=== PATIENT | male | born 1950 | race Caucasian/White ===

== ENCOUNTER 2024-02-02 14:38 | Emergency (ER) | payer MEDICARE, BC, SELFPAY ==
[2024-02-02] VITALS (30 sets, daily range): BP systolic 118–139; BP diastolic 71–101; PULSE 59–80; RESP 16–18; TEMP 36.6; O2SAT 92–97; BMI 30.4
--- NOTE | 2024-02-02 15:45 | ED.CHESTPAIN ---
HPI - Chest Pain General Time Seen by Provider: 15:45 Date Seen: 02/02/24 Chief Complaint: Chest Pain Stated Complaint: chest pain Time Seen by Provider: 02/02/24 15:01 Source: patient and RN notes reviewed Mode of arrival: ambulatory Limitations: no limitations History of Present Illness HPI narrative: This 73-year-old male is coming in with episodic chest pain. He feels like it is more superficial, has noted it with activity or movement, more with bending over rotating. It has had a sharp character. He has noted it pretty much all day today. He has been more physically active working on a car he just got. He has a history of Boyd's esophagus, does take omeprazole, does not think this is heartburn. He has taken aspirin and has helped with his symptoms as far as he knows. He is not felt any shortness of breath, no palpitations, no racing heart rate. Has not been sick with any respiratory illness, no fevers or chills. He does not notice this necessarily with walking. Seems to be more position changes that he feels it but today there has been an underlying sense of it being there are all day. He has noticed it in his low center chest, possibly more superficially. He has a brother whom has had stent placement. Related Data Home Medications ?Medication ?Instructions ?Recorded ?Confirmed allopurinol 100 mg tablet 300 mg PO DAILY 02/02/24 02/02/24 atorvastatin 10 mg tablet 10 mg PO DAILY 02/02/24 02/02/24 chlorthalidone 25 mg tablet 12.5 mg PO QAM 02/02/24 02/02/24 lamotrigine 100 mg tablet 100 mg PO BID 02/02/24 02/02/24 lisinopril 30 mg tablet 30 mg PO DAILY 02/02/24 02/02/24 melatonin 02/02/24 Allergies Allergy/AdvReac Type Severity Reaction Status Date / Time No Known Drug Allergies Allergy Verified 02/02/24 14:48 Review of Systems Status of ROS Reports: 6 or more systems reviewed and unremarkable except as noted in History and below [facility] Social History Smoking Status: Never smoker Do you use any of these nicotine containing products: None How often do you have a drink containing alcohol: 2-3 times a week AUDIT-C Alcohol total score: 3 Non-prescribed substance use: denies use Exam Const Vital Signs, click to edit/add: Vital Signs - 24 hr 02/02/24 14:45 02/02/24 15:01 02/02/24 15:15 Temperature 97.9 F Pulse Rate 77 80 Pulse Rate [Pulse Oximeter] 80 Respiratory Rate 18 Blood Pressure Blood Pressure [Right Upper Arm] 139/81 Pulse Oximetry 94 95 94 Oxygen Delivery Method Room Air 02/02/24 15:26 02/02/24 15:27 02/02/24 15:30 Temperature Pulse Rate 76 79 Pulse Rate [Pulse Oximeter] 75 Respiratory Rate 18 16 Blood Pressure 121/71 Blood Pressure [Right Upper Arm] 121/71 Pulse Oximetry 93 96 92 Oxygen Delivery Method Room Air 02/02/24 15:32 02/02/24 15:45 02/02/24 16:00 Temperature Pulse Rate 78 79 74 Pulse Rate [Pulse Oximeter] Respiratory Rate Blood Pressure 131/76 Blood Pressure [Right Upper Arm] Pulse Oximetry 93 93 92 Oxygen Delivery Method 02/02/24 16:01 02/02/24 16:15 02/02/24 16:30 Temperature Pulse Rate 76 73 72 Pulse Rate [Pulse Oximeter] Respiratory Rate Blood Pressure 127/72 Blood Pressure [Right Upper Arm] Pulse Oximetry 93 94 94 Oxygen Delivery Method 02/02/24 16:32 02/02/24 16:45 02/02/24 17:00 Temperature Pulse Rate 74 69 63 Pulse Rate [Pulse Oximeter] Respiratory Rate Blood Pressure 134/83 Blood Pressure [Right Upper Arm] Pulse Oximetry 94 94 92 Oxygen Delivery Method 02/02/24 17:01 02/02/24 17:15 02/02/24 17:30 Temperature Pulse Rate 66 66 68 Pulse Rate [Pulse Oximeter] Respiratory Rate Blood Pressure 118/101 H Blood Pressure [Right Upper Arm] Pulse Oximetry 95 96 96 Oxygen Delivery Method 02/02/24 17:32 02/02/24 17:45 02/02/24 18:00 Temperature Pulse Rate 66 63 62 Pulse Rate [Pulse Oximeter] Respiratory Rate Blood Pressure 139/82 Blood Pressure [Right Upper Arm] Pulse Oximetry 96 95 96 Oxygen Delivery Method 02/02/24 18:02 02/02/24 18:15 02/02/24 18:30 Temperature Pulse Rate 60 62 61 Pulse Rate [Pulse Oximeter] Respiratory Rate Blood Pressure 139/81 Blood Pressure [Right Upper Arm] Pulse Oximetry 96 96 97 Oxygen Delivery Method 02/02/24 18:32 02/02/24 18:45 02/02/24 19:00 Temperature Pulse Rate 61 61 65 Pulse Rate [Pulse Oximeter] Respiratory Rate Blood Pressure 133/85 Blood Pressure [Right Upper Arm] Pulse Oximetry 95 95 95 Oxygen Delivery Method 02/02/24 19:01 Temperature Pulse Rate 59 L Pulse Rate [Pulse Oximeter] Respiratory Rate Blood Pressure 133/80 Blood Pressure [Right Upper Arm] Pulse Oximetry 95 Oxygen Delivery Method Patient is alert, interactive, no apparent distress. Pupils equal round reactive to light, sclera clear. Face atraumatic, normal facial function. Able speak in complete sentences. Neck is supple, no adenopathy, no thyromegaly masses or nodules. Lungs are clear, good air entry, no wheezing crackles. CV regular rate and rhythm, no murmur, normal S1-S2, no S3-S4. Abdomen is soft, no rebound or guarding, no organomegaly. He has no lower extremity edema. There is no reproducible chest wall tenderness. Documenting provider has reviewed patient's vital signs: yes Course Course ED Course: Patient's initial EKG appears normal and he had an initial point of care troponin which is normal as well. We will do a follow-up troponin, other labs including D-dimer. He will get a portable chest x-ray. Reevaluation(s) Time of Reevaluation #1: 17:43 Reevaluation #1: Reviewed initial normal labs, chest x-ray with patient. He notes when he rolls over to the side that he can feel some central chest pain, can reproduce it. He does wonder if it could be musculoskeletal. Reviewed with him that it certainly could be but I cannot rule out other etiologies, more life-threatening etiologies without doing the workup. He will be having a follow-up troponin, we are still awaiting his D-dimer. He understands that if his D-dimer is elevated he will be getting a chest CT PE protocol to rule out pulmonary emboli. Vital Signs Vital signs: Initial Vital Signs Temperature 97.9 F 02/02/24 14:45 Temperature Source Temporal Artery Scan 02/02/24 14:45 Pulse Rate 80 02/02/24 14:45 Respiratory Rate 18 02/02/24 14:45 Blood Pressure 139/81 02/02/24 14:45 Blood Pressure Mean 100 02/02/24 14:45 Blood Pressure Position Supine 02/02/24 14:45 Pulse Oximetry 94 02/02/24 14:45 Oxygen Delivery Method Room Air 02/02/24 14:45 Vital Signs Temperature 97.9 F 02/02/24 14:45 Pulse Rate 80 02/02/24 14:45 Respiratory Rate 18 02/02/24 14:45 Blood Pressure 139/81 02/02/24 14:45 Pulse Oximetry 94 02/02/24 14:45 Oxygen Delivery Method Room Air 02/02/24 14:45 Temperature 97.9 F 02/02/24 14:45 Pulse Rate 59 L 02/02/24 19:01 Respiratory Rate 16 02/02/24 15:27 Blood Pressure 133/80 02/02/24 19:01 Pulse Oximetry 95 02/02/24 19:01 Oxygen Delivery Method Room Air 02/02/24 15:26 MDM - Chest Pain Lab Data Attestation: I reviewed the patient's lab results. Labs: Lab Results 02/02/24 02/02/24 Range/Units 15:10 18:10 WBC 6.04 (4.50-11.00) K/uL RBC 4.74 (4.30-5.90) m/uL Hgb 15.1 (13.5-17.5) gm/dL Hct 44.3 (37.0-53.0) % MCV 94 (80-100) fL MCH 32 (26-34) pg MCHC 34 (32-36) gm/dL RDW Coeff of Roger 12.2 (11.5-15.5) % Plt Count 135 L (140-440) K/uL Neut % (Auto) 69.4 (42.0-72.0) % Lymph % (Auto) 19.4 L (20-44) % [place] % (Auto) 7.6 (0.0-11.0) % Eos % (Auto) 2.2 (0.0-7.0) % Baso % (Auto) 0.2 (0.0-3.0) % Neut # (Auto) 4.20 (1.7-7.0) K/uL Lymph # (Auto) 1.20 (0.90-2.90) K/uL [place] # (Auto) 0.50 (0.00-0.90) K/UL Eos # (Auto) 0.13 (0.00-0.50) K/uL Baso # (Auto) 0.01 (0.00-0.30) K/uL Abs Immat Gran (auto) 0.07 (0.00-0.30) K/uL Imm/Tot Granulo (auto) 1.2 % D-Dimer Quant (PE/DVT) 0.56 H (0.00-0.50) ug/ml VBG pH 7.469 H (7.32-7.43) VBG pCO2 31 L (40-50) mmHG VBG pO2 58.9 H (25-47) mmHG VBG HCO3 23 (21-28) mmol/L Sodium 136 (135-149) mmol/L Potassium 3.8 (3.6-5.1) mmol/L Chloride 105 (96-114) mmol/L Carbon Dioxide 22 (20-32) mmol/L Anion Gap 9 (7-15) mEq/L BUN 23 (7-30) mg/dL Creatinine 1.2 (0.5-1.5) mg/dL Estimated Creat Clear 53.04 Estimated GFR 64 ml/min Glucose 132 H (60-115) mg/dL Calcium 9.2 (8.4-10.6) mg/dL Magnesium 1.8 (1.5-2.6) mg/dL Total Bilirubin 0.8 (0.1-1.5) mg/dL AST 35 (12-35) U/L ALT 36 (4-50) U/L Alkaline Phosphatase 81 (40-150) U/L Troponin I < 0.01 L (0.01-0.04) ng/mL C-Reactive Protein < 0.5 L (0.5-1.0) mg/dL NT-Pro-B Natriuret Pep 58 pg/mL Total Protein 7.0 (6.0-8.3) g/dL Albumin 4.5 (3.3-5.0) g/dL POC Troponin I 0.00 L 0.00 L (0.01-0.04) ng/ml Imaging Data Chest x-ray: Attestation: I have reviewed the pertinent imaging results. My impression: I do not see any acute cardiopulmonary change on my review. Radiologist's impression: Patient: TASHA VILLARREAL Facility:?[facility] Patient ID:?[id number] Site Patient ID:?[id number]. Site :?[id number] Study:?XRay-Chest 1V-02/02/2024 4:00:58 PM Ordering Physician:Johnson Delgadillo Final Report: INDICATION: : Chest pain COMPARISON: None TECHNIQUE: One view(s) of the chest FINDINGS: The cardiomediastinal silhouette and pulmonary vasculature are unremarkable. There is no focal airspace consolidation, pleural effusion, or pneumothorax. No displaced fractures. IMPRESSION: No acute cardiopulmonary process. Dictated by Nicolas Beltran MD @ 02/02/2024 4:09:17 PM (Electronic Signature) ECG Data Attestation: I personally reviewed and interpreted this ECG as follows: (Normal sinus rhythm, 77 beats per minute. No evidence for any ischemic change or infarct.) ECG interpretation date: 02/02/24 ECG interpretation time: 15:59 Critical Care Time Critical Care Time Critical Care Time: No Discharge Plan Discharge Clinical Impression: Atypical chest pain Patient Disposition: Home, Self-Care Condition: Stable Instructions: Chest Pain (ED), Noncardiac Chest Pain (ED) Additional Instructions: Your heart enzymes remain normal which makes is very unlikely to be heart related. It would still be recommended that you follow-up outpatient with your primary care provider, consider getting cardiac stress testing done. Your positional nature does seem like it certainly could be musculoskeletal. You could try Tylenol 1000 mg up to 3 times a day and see if that helped. Taking an 81 mg aspirin and tell you have had further cardiac evaluation with cardiac stress testing would be recommended. If the aspirin does increase any reflux symptoms for you, please stop. Another consideration would be underlying atypical presentation of your reflux disease. Please follow-up with your primary care provider and discuss further. In the meantime, if you have worsening chest symptoms, have further concerns, please return for further evaluation. Could consider doing calcium score scanned through [facility], can talk to your primary care provider about this further as well. Activity Level: Activity as Tolerated Prescriptions: No Action atorvastatin 10 mg tablet 10 mg PO DAILY chlorthalidone 25 mg tablet 12.5 mg PO QAM allopurinol 100 mg tablet 300 mg PO DAILY lisinopril 30 mg tablet 30 mg PO DAILY lamotrigine 100 mg tablet 100 mg PO BID melatonin Follow Up/Referrals: Jose Hoyos MD [Primary Care Provider] - Stand Alone Forms: [employer] Info Instructions
--- NOTE | 2024-02-02 15:46 | CRLHL7_ITS ---
For Patients: As a result of the Cures Act, medical imaging exams and procedure reports are released immediately into your electronic medical record. You may view this report before your referring provider. If you have questions, please contact your health care provider. INDICATION: : Chest pain COMPARISON: None TECHNIQUE: One view(s) of the chest FINDINGS: The cardiomediastinal silhouette and pulmonary vasculature are unremarkable. There is no focal airspace consolidation, pleural effusion, or pneumothorax. No displaced fractures. IMPRESSION: No acute cardiopulmonary process. Dictated by Nicolas Beltran MD @ 02/02/2024 4:09:17 PM (Electronically Signed)
[2024-02-02 15:51] LABS: HCO3 VBG 23 mmol/L (21-28); PCO2 VBG 31 mmHG (40-50); PO2 VBG 58.9 mmHG (25-47); pH VBG 7.469 (7.32-7.43)
[2024-02-02 15:54] LABS: Basophils Absolute Auto 0.01 K/uL (0.00-0.30); Basophils Percent Auto 0.2 % (0.0-3.0); Eosinophils Absolute Auto 0.13 K/uL (0.00-0.50); Eosinophils Percent Auto 2.2 % (0.0-7.0); Hematocrit 44.3 % (37.0-53.0); Hemoglobin* 15.1 gm/dL (13.5-17.5); Immature Granulocytes Abs Auto 0.07 K/uL (0.00-0.30); Immature Granulocytes Pct Auto 1.2 %; Lymphocytes Percent Auto 19.4 % (20-44); Mean Corpuscular HGB Conc 34 gm/dL (32-36); Mean Corpuscular Hemoglobin 32 pg (26-34); Mean Corpuscular Volume 94 fL (80-100); Monocytes Percent Auto 7.6 % (0.0-11.0); Neutrophils Percent Auto 69.4 % (42.0-72.0); Platelet Count* 135 K/uL (140-440); RDW Coefficient of Variation % 12.2 % (11.5-15.5); Red Blood Count 4.74 m/uL (4.30-5.90); White Blood Count* 6.04 K/uL (4.50-11.00)
[2024-02-02 16:29] LABS: Albumin* 4.5 g/dL (3.3-5.0); Chloride* 105 mmol/L (96-114); Sodium* 136 mmol/L (135-149)
[2024-02-02 16:30] LABS: Potassium* 3.8 mmol/L (3.6-5.1)
[2024-02-02 16:32] LABS: Anion Gap 9 mEq/L (7-15); Bilirubin Total* 0.8 mg/dL (0.1-1.5); Carbon Dioxide* 22 mmol/L (20-32); Creatinine* 1.2 mg/dL (0.5-1.5); Est. Creatinine Clearance* 53.04; Estimated Glomerular Filt Rate 64 ml/min
[2024-02-02 16:33] LABS: Alanine Aminotransferase* 36 U/L (4-50); Alkaline Phosphatase* 81 U/L (40-150); Aspartate Amino Transferase* 35 U/L (12-35); Blood Urea Nitrogen* 23 mg/dL (7-30); Calcium* 9.2 mg/dL (8.4-10.6); Glucose* 132 mg/dL (60-115); Magnesium* 1.8 mg/dL (1.5-2.6)
[2024-02-02 16:37] LABS: C Reactive Protein* < 0.5 mg/dL (0.5-1.0)
[2024-02-02 16:47] LABS: NT Pro B Type NatriureticPept* 58 pg/mL; Troponin I* < 0.01 ng/mL (0.01-0.04)
[2024-02-02 16:54] LABS: Slide Review Reflex No
[2024-02-02 18:55] LABS: D Dimer Quantitative* 0.56 ug/ml (0.00-0.50)
== END 2024-02-02 19:27 | disposition home or self-care (01) ==
PROVIDERS: Emergency Provider Family Medicine; PCP Family Medicine
DX: R07.89 Other chest pain (principal)
CPT/HCPCS: 36415; 71045; 80053; 82803; 83735; 83880; 84484; 85025; 85379; 86140; 93005; 94761; 99284; 99285